=== PATIENT | male | born 1975 ===

== ENCOUNTER → 2016-11-13 | Outpatient (CLI) | payer OTHER ==
[~2016-11-13] MED LIST: CYCL10TA2 PO; IOHEXOL 180 MG/ML 10 ML VIAL. ONE; methylPREDNISolone ACETATE 40 MG/ML VIAL. ONE; methylPREDNISolone ACETATE 80 MG/ML VIAL. ONE
--- NOTE | 2016-11-16 09:14 | PAIN ---
DATE OF SERVICE: 11/13/2016 INITIAL CONSULTATION CHIEF COMPLAINT: Low back pain and bilateral lower extremity pain. HISTORY OF PRESENT ILLNESS: This is a 41-year-old male who presents with history of pain for about 6 months, increasing, not a result of any specific injury or action he is aware of, but significant pain in the low back just from daily use and he has been moving some items in his home and remodeling some things and so forth, nothing specific but very tender now in the low back, radiating to bilateral lower extremities, mostly in the posterior gluteus, posterior and lateral thighs, but it is becoming more and more noticeable. It has not gotten better with conservative therapies. He has tried stretching and strengthening exercises on his own. Also, physical therapy as recently as 09/2016 and chiropractic treatment up until 07/2016. The patient reports the pain is sharp and shooting, tingling across the low back, essentially equal right and left, into the posterior gluteus, posterior thighs, lateral thighs and sometimes into the knees as well, usually in the upper part of the legs or to the low back. The patient reports disability rating from 0 to 10, 10 being the worst, as a 4-5 on a scale of 10 with family and home responsibilities and recreation, 2-3 with social activity, occupation, sexual behavior, self-care and life support activities. The patient did have an MRI scan of the lumbar spine that is dated 11/04/2016, showing disk bulge and broad-based central disk protrusion at L5-S1 with broad-based disk protrusion that approaches but it does not visible contact or displace the traversing S1 nerve roots and no compression of the exiting L5 nerve roots as well. The patient has tried Flexeril, which helps decrease the pain to a moderate extent. Otherwise, he has found nothing else that has really helped at this point. PAST MEDICAL HISTORY: Significant for arthritis only. No other medical conditions. No previous surgeries. The patient has been in very good health otherwise. MEDICATIONS: Medication list includes only cyclobenzaprine. ALLERGIES: The patient has no known drug allergies. FAMILY HISTORY: Significant for no major medical problems or conditions he is aware of. SOCIAL HISTORY: The patient does not smoke. Drinks about 2-3 alcoholic drinks maybe twice a week at the most. He is and lives with his spouse, has one child at home. Lives locally in [place], [place]. REVIEW OF SYSTEMS: The patient's review of systems is positive for those items mentioned in the history of present illness. All systems are reviewed and otherwise negative. It is complete, full and well documented on the patient's chart. PHYSICAL EXAMINATION: VITAL SIGNS: Today, the patient's blood pressure is 121/67, pulse is 85, respirations 18, temperature 98.0 degrees Fahrenheit, height is 6 feet 2 inches, weight is 199 pounds. GENERAL: The patient is awake, alert, oriented, appropriate, very pleasant demeanor. The patient is accompanied by his spouse. HEENT: Shows normocephalic and atraumatic. Extraocular movements are intact, symmetrical. Oral cavity shows mucous membranes are moist and pink. Dentition is intact. NECK: Shows anterior throat supple without palpable lymphadenopathy noted. Swallow reflex is symmetrical. CHEST: Shows normal on inspection. Breath sounds are clear to auscultation bilaterally. HEART: Shows S1 and S2 clear. No murmurs auscultated. ABDOMEN: Soft, nontender, nondistended. No palpable organomegaly. No new rebound or guarding demonstrated. BACK: Shows spine grossly in the midline. Normal-appearing thoracic kyphosis and lumbar lordotic curvature. Lumbar paraspinous musculature shows symmetrical on inspection. No previous bruises, lesions, rashes or scars are noted. With palpation in the paraspinous musculature, some mild tenderness only in the low lumbar distribution and only diffusely. Muscle girth is normal and symmetrical. No tenderness over the sacrum, sacroiliac regions or the spinous processes with palpation. The patient shows good rotational motion of the lumbar spine, both laterally greater than 10 degrees right and left as well as extension greater than 10 degrees, forward flexion 45 degrees without pain reported in any of these maneuvers. EXTREMITIES: Lower extremities show deep tendon reflexes 2+ in the patellar and 1+ tendo-calcaneus tendons, are equal. Motor exam is strong with 5/5 dorsiflexion, extension, quadriceps and hamstring flexion and symmetrical. Straight leg raise noted to be negative for reproduction of radicular symptoms bilaterally. Gaenslen's and Pravin's maneuvers are negative bilaterally for reproduction of pain as well. The patient is able to stand on his toes without difficulty or loss of balance. He has a minor amount of pain changing from sitting to standing position, but only across the low back when changing positions. The patient is walking with a normal gait. He is able to heel and toe walk for several steps without difficulty or loss of balance. He is not using any assistive devices to ambulate. IMPRESSION: 1. This is a 41-year-old male with approximately 6-month history of increasing pain in low back and bilateral lower extremities as noted. 2. MRI scan of the lumbar spine as noted. 3. History of arthritis. PLAN: Options were discussed with the patient including conservative medical management, physical therapy, interventional techniques. He would like to pursue interventional techniques as he has been doing physical therapy for sometime now, has some chiropractic treatment as well without significant improvement. We discussed a lumbar epidural steroid injection using description as well as anatomical models to describe the procedure. Risks were then discussed including but not limited to bleeding, infection, possibility of epidural hematoma, subsequent neurologic compromise, dural puncture, headaches, spinal cord and/or nerve damage, side effects of steroid medication and poor results regarding pain control. The patient understands and wishes to proceed. The patient will return to the clinic in approximately 2 weeks for followup. He was counseled on his return appointment, activity level and side effects to be aware of. DIAGNOSES: Lumbar radiculopathy with lumbar degenerative disk disease. PROCEDURES: Lumbar epidural steroid injection in translaminar approach at the L5-S1 level using C-arm fluoroscopic guidance under sterile prep and drape using local anesthetic. MEDICATION INJECTED: Depo-Medrol 120 mg plus 10 mL of preservative-free normal saline and 2 mL of Isovue for contrast. CONDITION AT DISCHARGE: Stable. The patient tolerated the procedure well, had no complications. LISSA MANN MD DR: CORINNA/francisco javier JOB#: [id number] / [id number] MARGI Lazaro MD
== END | disposition home or self-care (01) ==
LOC: EDSEX 07:47 → PNCL 07:47
PROVIDERS: ATTEND Anesthesiology
DX: M51.16 Intervertebral disc disorders with radiculopathy, lumbar region (principal); M19.90 Unspecified osteoarthritis, unspecified site; Z72.89 Other problems related to lifestyle
CPT/HCPCS: 62323; J1030; J1040

== ENCOUNTER → 2016-12-08 | Outpatient (CLI) | payer OTHER ==
--- NOTE | 2016-12-09 05:01 | PAIN ---
DATE OF SERVICE: 12/08/2016 PROGRESS NOTE FOR PAIN CLINIC DIAGNOSES: Lumbar radiculopathy with lumbar degenerative disk disease. HISTORY OF PRESENT ILLNESS: The patient is a 41-year-old male who returns for followup status post lumbar epidural steroid injection x 1. The patient reports about 95% improvement for first 2 weeks after the injection. The patient reports after that time, he was increasing activity to a fair extent, but nothing over doing it, has increased pain is returning in the low back to about its baseline. The patient reports as a 9 on a scale of 10 at its worst, currently a 3 on a scale of 10, usually about a 5 on a scale of 10, does not awake him from sleep at night. He feels better with lying down or sitting, ____ his feet, walking, standing, change in positions, it is more noticeable. The patient reports no new motor or sensory deficits, no new bowel or bladder incontinence or other complaints. PHYSICAL EXAMINATION: VITAL SIGNS: The patient's blood pressure 135/79, pulse 90, respirations 18, temperature 98.2 degrees Fahrenheit, height is 6 feet 2 inches, weight is 196 pounds. GENERAL: The patient is awake, alert, oriented, appropriate, very pleasant demeanor. HEENT: Head shows normocephalic, atraumatic. Extraocular movements are intact and symmetrical. Oral cavity, mucous membranes are moist and pink. Dentition is intact. NECK: Shows anterior throat supple without palpable lymphadenopathy noted. Swallow reflex is symmetrical. CHEST: Shows normal on inspection. Breath sounds clear to auscultation bilaterally. HEART: Shows S1 and S2 clear. No murmurs auscultated. ABDOMEN: Soft, nontender, nondistended. No palpable organomegaly is noted. No rebound or guarding demonstrated. BACK: Shows spine grossly midline. Lumbar paraspinous musculature shows symmetrical on inspection with palpation shows some mild tenderness only to diffuse extent in the low lumbar distribution bilaterally without asymmetry. No trigger points. Muscle girth is normal on palpation as well. The patient has good rotational motion of the lumbar spine, both laterally as well as extension and flexion without difficulty or pain reported. LOWER EXTREMITIES: Show deep tendon reflexes 2+ in the patellar, 1+ tendo calcaneus tendons. Motor exam is strong with 5/5 dorsiflexion, extension, quadriceps and hamstring flexion equal. Options were discussed with the patient and the patient's old chart was reviewed as his current medication regimen updated. Current review of systems updated today as well. We will proceed with a second lumbar epidural steroid injection today with fluoroscopic guidance. Risks were again discussed including, but not limited to bleeding, infection, possibility of epidural hematoma, subsequent neurologic compromise, dural puncture, headaches, spinal cord and/or nerve damage, side effects of steroid medication and poor results regarding pain control. The patient understands and wishes to proceed. The patient will return to the clinic in approximately 2 weeks for followup, was counseled on return appointment, activity level and side effects to be aware of. DIAGNOSIS: Lumbar radiculopathy with lumbar degenerative disease. PROCEDURE: Lumbar epidural steroid injection in translaminar approach at the L5-S1 level using C-arm fluoroscopic guidance under sterile prep and drape using local anesthetic. MEDICATIONS INJECTED: Depo-Medrol 120 mg plus 10 mL preservative-free normal saline and 2 mL Isovue for contrast. CONDITION AT DISCHARGE: Stable. The patient tolerated procedure well, had no complications. LISSA MANN MD DR: CORINNA/francisco javier JOB#: [id number] / [id number]
== END | disposition home or self-care (01) ==
LOC: EDSEX → PNCL 14:08
PROVIDERS: ATTEND Anesthesiology
DX: M51.16 Intervertebral disc disorders with radiculopathy, lumbar region (principal)
CPT/HCPCS: 62323; J1030; J1040